=== PATIENT | male | born 1950 | race Caucasian/White ===

== ENCOUNTER 2017-05-11 00:26 | Day surgery (SDC) | payer OTHER ==
[~2017-05-11] VITALS: Ht 182.9 cm; Wt 96.6 kg
[~2017-05-11 00:26] MED LIST: CEP500 PO; FAMO-1 IV; HYDR-2954 PO; IBU800 PO; IBUP1TAB93 PO; KET10 PO; LOR75 PO; OXYC-717 PO; OXYC5CAP21 PO; PHENA200 PO; TAMS0.4C25 PO; TRAZ-156 PO
[2017-05-11 05:48] VITALS: BP 157/101
[2017-05-11] MEDS ORDERED: FAMOTIDINE 20 MG TAB PO ONE (06:30)
[2017-05-11] MEDS ORDERED: ceFAZolin(*) 2GM/D5W 50ML 50 ML IVPB ONE (06:30)
[2017-05-11] MEDS ORDERED: LIDOCAINE/SOD BICARB 8.4% SYR ID ONE (06:30)
[2017-05-11] MEDS ORDERED: MIDAZOLAM 2 MG/2 ML VIAL IVP PRN (06:30)
[2017-05-11] MEDS ORDERED: NORMOSOL R SOLN(*) 1000 ML BAG 1,000 ML IV PRN (06:30)
[2017-05-11] MEDS ORDERED: OXYMETAZOLINE SPRAY 15 ML BTL ONE (06:42)
[2017-05-11] MEDS ORDERED: DEXAMETHASONE SOD PHOS 10MG/ML ONE (06:45)
[2017-05-11] MEDS ORDERED: ONDANSETRON 4 MG/2 ML VIAL ONE (06:45)
[2017-05-11] MEDS ORDERED: LIDOCAINE MPF 1% 5 ML VIAL ONE (06:46)
[2017-05-11] MEDS ORDERED: METOCLOPRAMIDE 10 MG/2 ML SDV ONE (06:46)
[2017-05-11] MEDS ORDERED: PROPOFOL EMUL(*) 10MG/ML 20 ML 20 ML ONE (06:46)
[2017-05-11] MEDS ORDERED: SUCCINYLCHOL CHL 200MG/10ML VL ONE (06:49)
[2017-05-11] MEDS ORDERED: fentaNYL CITR 100 MCG/2 ML AMP ONE ×2 (06:50→08:10)
[2017-05-11] MEDS ORDERED: ROCURONIUM BROM 10 MG/ML 5 ML ONE (07:30)
[2017-05-11] MEDS ORDERED: PER PO (08:39)
[2017-05-11] MEDS ORDERED: AMOX500T10 PO (08:43)
[2017-05-11 08:50] VITALS: BP 143/87
[2017-05-11 09:00] VITALS: BP 150/92
[2017-05-11 09:15] VITALS: BP 150/92
[2017-05-11 09:21] VITALS: BP 156/106
[2017-05-11 09:22] VITALS: BP 141/95
--- NOTE | 2017-05-12 07:53 | OPERATIVE REPORT 1 ---
EVENT DATE: May 11, 2017 SURGEON: Yovany Navarrete MD ANESTHESIOLOGIST: Yemi Adrian MD ANESTHESIA: General endotracheal PROCEDURE Tonsillectomy. PREOPERATIVE DIAGNOSES 1. Tonsillar hypertrophy. 2. Obstructive sleep apnea. POSTOPERATIVE DIAGNOSES 1. Tonsillar hypertrophy. 2. Obstructive sleep apnea. INDICATIONS Please refer to the preoperative note. DESCRIPTION OF PROCEDURE The patient was positively identified in the preoperative area. He was there alone. Risks were again explained, including but not limited to, bleeding, infection and those associated with anesthesia. He acknowledged understanding of those risks. He was then brought back to the operative suite, laid supine on the operative table and anesthesia was administered. Once asleep, the patient was positioned, then prepped and draped in usual sterile fashion. A McIvor mouth gag was placed in the patient's oral cavity. Red rubber catheter was placed through the right nostril and utilized to suspend the soft palate. The patient was noted to have 3+ tonsils. The right tonsil was grasped with curved Allis forceps and carefully dissected from the lateral pharyngeal wall with Bovie electrocautery. In a similar fashion, the contralateral tonsil was removed. Hemostasis was further obtained with suction Bovie electrocautery. The patient was then turned to anesthesia for emergence. ESTIMATED BLOOD LOSS 25 mL. COMPLICATIONS No complications. MTDD
== END 2017-05-11 08:50 | disposition home or self-care (01) ==
LOC: OR 00:26
PROVIDERS: ATTEND Otolaryngology
DX: J35.1 Hypertrophy of tonsils (principal); G47.33 Obstructive sleep apnea (adult) (pediatric)
CPT/HCPCS: 42826; 88304; J0330; J1100; J2001; J2405; J2704; J2765; J3010; J0690